=== PATIENT | male | born 1960 | race Caucasian/White ===

== ENCOUNTER → 2016-07-25 | Outpatient (CLI) | payer MEDICAID | LOC: BMCIMAGING 10:56 | PROVIDERS: ATTEND Urology | DX: N43.2 Other hydrocele (principal); N50.3 Cyst of epididymis ==

== ENCOUNTER 2016-07-30 12:11 | Emergency (ER) | payer MEDICAID ==
[2016-07-30 12:22] VITALS: RESP 16; TEMP 97.3
--- NOTE | 2016-07-30 12:31 | CPEKG ---
Heart Rate: 58 RR Interval: 1034 P-R Interval: 148 QRSD Interval: 98 QT Interval: 460 QTC Interval: 452 P [place]: 70 QRS [place]: 10 T Wave [place]: 19 EKG Severity - NORMAL ECG - EKG Impression: SINUS RHYTHM Electronically Signed By: Jolene Stokes 30-Jul-2016 22:04:02
--- NOTE | 2016-07-30 13:37 | EDPHY ---
H & P Stated Complaint: chest tightness, sob HPI/ROS: CHIEF COMPLAINT: Chest Pain HISTORY OF PRESENT ILLNESS: Patient complains of chest pressure. This has actually been present since November 2014. It comes and goes. It is been present now all week but has worsened over the past 2 days. He feels this is related to stress. He denies any actual chest pain. He just feels that his chest is heavy at times. Minimal shortness of breath at times. None recently. No fever chills. No cough or congestion. No history of venous thrombolic event or coronary artery disease. No recent travel or surgery. No use of testosterone. No lower extremity erythema edema or pain. No abdominal urinary complaints. Patient says that he has multiple stressors in his life that he feels are contributing to this. He feels very anxious about several of them. He does not smoke. No diabetes. No other associated complaints or modifying factors. FAMILY HISTORY CARDIAC: Noncontributory PRIOR CARDIAC WORKUP: Treadmill stress test last year reportedly normal REVIEW OF SYSTEMS: Ten systems reviewed and are negative unless otherwise noted in the HPI EXAMINATION: General Appearance: Alert, no distress Head: normocephalic, atraumatic Eyes: Pupils equal and round, no conjunctival pallor or injection ENT, Mouth: Mucous membranes moist uvula midline. No Neck: Normal inspection, supple, non-tender Respiratory: Lungs are clear to auscultation. No wheezing, rhonchi or crackles Cardiovascular: Regular rate and rhythm. No murmur. Pulses intact distally. Gastrointestinal: Abdomen is soft and nontender Back: non-tender, no bony abnormalities Neurological: A&O, nonfocal, normal gait. Strength is symmetric in all limbs. Skin: Warm and dry, no rash. No petechiae or purpura Extremities: Nontender, no pedal edema. No palpable cords. No pain with passive dorsiflexion of the feet. No evidence of DVT. Psychiatric: Mood and affect normal DIFFERENTIAL DIAGNOSES: Including but not limited to in no particular order: Acute Chest Pain, ACS, Stable Angina, Pneumonia, PE, duodenitis, gastritis, esophagitis, GERD MDM: 1:20 p.m. Chest pressure that has been present for nearly 18 months at times. He has pressure that has been present for well over 12 hours at this time. No evidence of DVT by history, examination or vital signs. Laboratory studies and chest x-ray are pending at this time. All laboratory studies are negative including D-dimer. Chest x-ray reveals only chronic findings. No acute findings. Vital signs are stable. We discussed discharge home with follow-up with his existing [facility] physician and potentially cardiology follow-up. Also discussed observation for stress test. I do not feel he warrants this, nor does he want to be admitted. He had a stress test less than a year ago that was normal. Feel that most of this is related to stress or anxiety. He agrees. His spouse is at bedside and she agrees as well. He will be discharged home stable condition to follow up with his primary care physician. I will trial him with hydroxyzine for the stress. Return to ER for any worsening symptoms. He is comfortable with this plan, discharged home stable condition. EKG: Interpreted by Dr. Stokes SUPERVISION: This patient was independently evaluated without direct examination by the attending physician. Case was discussed with attending physician. Source: Patient Exam Limitations: No limitations - Personal History Current Tetanus Diphtheria and Acellular Pertussis (TDAP): Yes - Medical/Surgical History Hx Asthma: No Hx Chronic Respiratory Disease: No Hx Diabetes: No Hx Cardiac Disease: No Hx Renal Disease: No Hx Cirrhosis: No Hx Alcoholism: No Hx HIV/AIDS: No Hx Splenectomy or Spleen Trauma: No Other PMH: anxiety - Social History Smoking Status: Never smoked Constitutional: Initial Vital Signs Temperature (C) 97.3 F 07/30/16 12:18 Heart Rate 56 L 07/30/16 12:18 Respiratory Rate 16 07/30/16 12:18 Blood Pressure 141/88 H 07/30/16 12:18 O2 Sat (%) 95 07/30/16 12:18 O2 Delivery Mode Room Air Allergies/Adverse Reactions: No Known Allergies Allergy (Unverified 12/13/10 08:12) Home Medications: Medication Instructions Recorded Flevoxin Tablet 07/30/16 hydrOXYzine HCL [Hydroxyzine HCl] 50 mg PO Q6-8PRN PRN #20 tablet 07/30/16 Medical Decision Making - Diagnostics Imaging Results: Imaging Impressions Chest X-Ray 07/30/16 13:08 Impression: 1. Hyperexpansion, which could be related to airways disease/air trapping, with tiny effusions versus atelectasis. 2. Old likely unfused left clavicular fracture. 3. Additional findings as above. - Data Points Laboratory Results: Laboratory Results 07/30/16 13:40 07/30/16 13:40 07/30/16 07/30/16 07/30/16 13:40 13:40 13:40 WBC 6.66 10^3/uL 10^3/uL (3.80-9.50) RBC 5.15 10^6/uL 10^6/uL (4.40-6.38) Hgb 16.4 g/dL g/dL (13.7-17.5) Hct 47.4 % % (40.0-51.0) MCV 92.0 fL fL (81.5-99.8) MCH 31.8 pg pg (27.9-34.1) MCHC 34.6 g/dL g/dL (32.4-36.7) RDW 11.5 % % (11.5-15.2) Plt Count 268 10^3/uL 10^3/uL (150-400) MPV 9.6 fL fL (8.7-11.7) Neut % (Auto) 65.7 % % (39.3-74.2) Lymph % (Auto) 26.0 % % (15.0-45.0) [place] % (Auto) 5.6 % % (4.5-13.0) Eos % (Auto) 1.8 % % (0.6-7.6) Baso % (Auto) 0.6 % % (0.3-1.7) Nucleat RBC Rel Count 0.0 % % (0.0-0.2) Absolute Neuts (auto) 4.38 10^3/uL 10^3/uL (1.70-6.50) Absolute Lymphs (auto) 1.73 10^3/uL 10^3/uL (1.00-3.00) Absolute Monos (auto) 0.37 10^3/uL 10^3/uL (0.30-0.80) Absolute Eos (auto) 0.12 10^3/uL 10^3/uL (0.03-0.40) Absolute Basos (auto) 0.04 10^3/uL 10^3/uL (0.02-0.10) Absolute Nucleated RBC 0.00 10^3/uL 10^3/uL (0-0.01) Immature Gran % 0.3 % % (0.0-1.1) Immature Gran # 0.02 10^3/uL 10^3/uL (0.00-0.10) PT 13.7 SEC SEC (12.0-15.0) INR 1.06 (0.83-1.16) APTT 31.8 SEC SEC (23.0-38.0) D-Dimer < 0.27 ug/mLFEU ug/mLFEU (0.00-0.50) Sodium 141 mEq/L mEq/L (134-144) Potassium 4.2 mEq/L mEq/L (3.5-5.2) Chloride 107 mEq/L mEq/L (97-110) Carbon Dioxide 24 mEq/l mEq/l (22-31) Anion Gap 10 mEq/L mEq/L (8-16) BUN 17 mg/dL mg/dL (7-23) Creatinine 0.8 mg/dL mg/dL (0.7-1.3) Estimated GFR > 60 Glucose 90 mg/dL mg/dL (70-100) Calcium 9.4 mg/dL mg/dL (8.5-10.4) Magnesium 2.0 mg/dL mg/dL (1.6-2.3) Total Bilirubin 0.8 mg/dL mg/dL (0.1-1.4) Conjugated Bilirubin 0.4 mg/dL mg/dL (0.0-0.5) Unconjugated Bilirubin 0.4 mg/dL mg/dL (0.0-1.1) AST 33 IU/L IU/L (17-59) ALT 32 IU/L IU/L (21-72) Alkaline Phosphatase 82 IU/L IU/L (38-126) Troponin I < 0.012 ng/mL ng/mL (0-0.034) NT-Pro-B Natriuret Pep 56 pg/mL pg/mL (0-125) Total Protein 7.7 g/dL g/dL (6.3-8.2) Albumin 4.6 g/dL g/dL (3.5-5.0) Lipase 182.0 IU/L IU/L (23-300) Departure - Departure Disposition: Home, Routine, Self-Care Clinical Impression: Stress Chest pain Qualifiers: Chest pain type: unspecified Qualified Code(s): R07.9 - Chest pain, unspecified Condition: Good Instructions: Chest Pain (ED), Stress (ED), Anxiety (ED) Additional Instructions: Follow-up with primary care physician and Cardiology. Return to the ER for any worsening pain, shortness of breath, fever, or chills. Referrals: NONE *PRIMARY CARE P,. [Primary Care Provider] - As per Instructions [facility],. [Clinic] - As per Instructions Francisco Hess MD [Medical Doctor] - As per Instructions Prescriptions: hydrOXYzine HCL [Hydroxyzine HCl] 50 mg PO Q6-8PRN PRN #20 tablet PRN Reason: Itching
[2016-07-30 13:55] LABS: % IMMATURE GRANULYOCYTES 0.3 % (0.0-1.1); ABSOLUTE IMMATURE GRANULOCYTES 0.02 10^3/uL (0.00-0.10); ADD DIFF? NO; ADD MORPH? NO; ADD SCAN? NO; ATYPICAL LYMPHOCYTE FLAG 10 (0-99); FRAGMENT RBC FLAG 0 (0-99); HEMATOCRIT 47.4 % (40.0-51.0); HEMOGLOBIN 16.4 g/dL (13.7-17.5); LEFT SHIFT FLG 0 (0-99); LIPEMIA HEMOLYSIS FLAG 90 (0-99); MEAN CELL HEMOGLOBIN 31.8 pg (27.9-34.1); MEAN CELL HEMOGLOBIN CONCENTR. 34.6 g/dL (32.4-36.7); MEAN PLATELET VOLUME 9.6 fL (8.7-11.7); PLATELET CLUMPS FLAG 10 (0-99); PLATELET COUNT 268 10^3/uL (150-400); RED BLOOD CELL COUNT 5.15 10^6/uL (4.40-6.38); RED CELL DISTRIBUTION WIDTH 11.5 % (11.5-15.2)
[2016-07-30 14:07] LABS: APTT 31.8 SEC (23.0-38.0); INR 1.06 (0.83-1.16); PROTIME(PATIENT) 13.7 SEC (12.0-15.0)
[2016-07-30 14:20] LABS: ALANINE AMINOTRANSFERASE 32 IU/L (21-72); ALBUMIN 4.6 g/dL (3.5-5.0); ALKALINE PHOSPHATASE 82 IU/L (38-126); ANION GAP 10 mEq/L (8-16); ASPARTATE AMINOTRANSFERASE 33 IU/L (17-59); BILIRUBIN,TOTAL 0.8 mg/dL (0.1-1.4); BILIRUBIN-CONJUGATED 0.4 mg/dL (0.0-0.5); BILIRUBIN-UNCONJUGATED 0.4 mg/dL (0.0-1.1); CALCIUM 9.4 mg/dL (8.5-10.4); CARBON DIOXIDE 24 mEq/l (22-31); CHLORIDE 107 mEq/L (97-110); CREATININE 0.8 mg/dL (0.7-1.3); GLOMERULAR FILTRATION RATE > 60; GLUCOSE 90 mg/dL (70-100); POTASSIUM 4.2 mEq/L (3.5-5.2); SODIUM 141 mEq/L (134-144); TOTAL PROTEIN 7.7 g/dL (6.3-8.2)
[2016-07-30 14:32] LABS: TROPONIN I < 0.012 ng/mL (0-0.034)
[2016-07-30 15:32] VITALS: BP 117/89; PULSE 53; O2SAT 93
== END 2016-07-30 15:30 | disposition home or self-care (01) ==
DX: F43.9 Reaction to severe stress, unspecified (principal)